=== PATIENT | male | born 1965 | race Two or more races ===

== ENCOUNTER 2022-06-15 09:45 | Emergency (ER) | payer MEDICARE, MEDICAID, OTHER ==
[~2022-06-15] VITALS: Ht 177.8 cm; Wt 95.4 kg
[~2022-06-15 09:45] MED LIST: AMLO-489 PO; BENA20TA14 PO
[2022-06-15 10:45] LABS: Basophils # (auto) 0 10 ^3/uL (0-0.2); Basophils % (auto) 0.5 % (0.0-2.0); Eosinophils # (auto) 0.2 10 ^3/uL (0-0.8); Hematocrit 45.9 % (41.0-53.0); Hemoglobin 15.8 g/dL (13.5-17.5); Lymphocytes # (auto) 1.2 10 ^3/uL (0.4-5.4); Lymphocytes % (auto) 12.5 % (10.0-50.0); Mean Corpuscular Hemoglobin 27.6 pg (28.0-32.0); Mean Corpuscular Hgb Conc. 34.3 g/dL (32.0-36.0); Mean Corpuscular Volume 80.5 fL (80.0-100.0); Monocytes # (auto) 0.8 10 ^3/uL (0-1.3); Monocytes % (auto) 7.7 % (0.0-12.0); Neutrophils # (auto) 7.7 10 ^3/uL (1.6-8.6); Neutrophils % (auto) 77.3 % (37.0-80.0); Nucleated Red Blood Cells % 0.1 %; Red Blood Cells 5.71 10^6/uL (4.5-5.90); Red Cell Distribution Width 14.2 % (11.8-14.3)
[2022-06-15 11:03] LABS: Albumin 3.4 g/dL (3.4-5.0); Calcium 8.9 mg/dL (8.5-10.1); Potassium 3.5 mmol/L (3.5-5.1)
[2022-06-15 11:09] LABS: Bilirubin, Total 0.6 mg/dL (0.2-1.0); Total Protein 6.8 g/dL (6.4-8.2)
[2022-06-15 11:13] LABS: INR 1.03 (0.9-1.15); Partial Thromboplastin Time 27.7 sec (24.6-33.4)
[2022-06-15 12:09] LABS: BUN/Creatinine Ratio 18.6
[2022-06-15] MEDS ORDERED: HYDROcodone-ACET 5/325MG TAB PO ONE (13:15)
[2022-06-15 17:21] VITALS: BP 137/73
== END 2022-06-15 17:29 | disposition short-term general hospital (02) ==
LOC: EDBD 09:45 → ER 09:45
DX: S14.107A Unspecified injury at C7 level of cervical spinal cord, initial encounter (principal); I10 Essential (primary) hypertension; E11.9 Type 2 diabetes mellitus without complications; F17.210 Nicotine dependence, cigarettes, uncomplicated; Z98.890 Other specified postprocedural states; Z88.1 Allergy status to other antibiotic agents; Z88.6 Allergy status to analgesic agent; V43.52XA Car driver injured in collision with other type car in traffic accident, initial encounter; Y93.89 Activity, other specified; Y92.89 Other specified places as the place of occurrence of the external cause; Y99.8 Other external cause status
CPT/HCPCS: 36415; 70450; 71260; 72125; 73030; 73060; 74177; 80053; 83605; 84484; 85025; 85610; 85730; 86850; 86900; 86901; 93005